=== PATIENT | female | born 1965 | race Caucasian/White ===

== ENCOUNTER 2017-04-12 09:36 | Emergency (ER) | payer OTHER ==
[~2017-04-12] VITALS: Ht 160 cm; Wt 73.0 kg
[2017-04-12] MEDS ORDERED: ULTRAM50 M1 PO (10:34)
[2017-04-12 10:42] VITALS: BP 132/69
== END 2017-04-12 10:42 | disposition home or self-care (01) | DRG 935 ==
LOC: ED 09:36
PROC: 2W2CX4Z Dressing of Right Lower Arm using Bandage (ICD-10-PCS; principal; 2017-04-12)
PROC: 2W2AX4Z Dressing of Right Upper Arm using Bandage (ICD-10-PCS; 2017-04-12)
DX: T22.241A Burn of second degree of right axilla, initial encounter (principal); T31.0 Burns involving less than 10% of body surface; T22.211A Burn of second degree of right forearm, initial encounter; X19.XXXA Contact with other heat and hot substances, initial encounter; Y93.89 Activity, other specified; Y92.89 Other specified places as the place of occurrence of the external cause